=== PATIENT | female | born 1960 | race Caucasian/White ===

== ENCOUNTER 2023-12-24 14:46 | Emergency (ER) | payer BC, SELFPAY ==
[2023-12-24 14:54] VITALS: BP 115/62
--- NOTE | 2023-12-24 18:00 | ED.GENMED ---
History of Present Illness
General
Chief Complaint: Swelling
Source: patient
Exam Limitations: none
Time Seen by Provider: 12/24/23 17:37
Nursing documentation reviewed up to this point in time: agreed with
Travel History
Have you had any contact with someone who has COVID-19?: No
Do you have any symptoms of coronavirus? Fever > 100 degrees, chills, cough, shortness of breath, sore throat, loss of taste or smell, muscle aches, or headache?: No
History of Present Illness
History of Present Illness:
63-year-old female presents stating she feels fatigued, dehydrated, she has a bruise on her right hand and her right arm has been painful, she had chest pressure earlier this morning. 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
her right arm 1 week ago and the arm has been painful since. She is concerned that the bruise on the dorsum of her right hand is a blood clot.
She saw her primary care provider yesterday and was put on Bactrim for a possible sinus infection, she states she has no pressure in her sinuses or congestion.
She denies fever or chills. Denies trouble breathing. Denies abdominal pain, denies N/V/C/D. States her appetite has been fine
Past History
Past History
ED Past Medical History: Hypercholesterolemia
ED Past Surgical History: None
Social History
Tobacco: Smoker
Alcohol: None
Personal: Single
Living: alone
Employment: Employed
Review of Systems
Review of Systems
Allergies reviewed?: Yes
All Other Systems: ROS reviewed and negative except as documented in HPI and ROS
Constitutional: Reports fatigue; Denies fever
EENT: Denies sore throat or runny nose
Respiratory: Denies cough or trouble breathing
Cardiac: Reports chest pain (Chest pressure this morning, none now); Denies palpitations
ABD/GI: Denies abdominal pain, nausea, vomiting, diarrhea, constipated or anorexia
: Denies dysuria, frequency or difficulty voiding
Musculoskeletal: Reports other (Soreness of right arm); Denies neck pain or back pain
Skin: Reports other (Bruise dorsum of right hand)
Neurological: Denies dizzy, headache, weakness or numbness
Phy Exam
Physical Exam
Physical Exam:
GENERAL: No acute distress. A&Ox3.
CONSTITUTIONAL: Afebrile.
EYES: Clear, conjunctivae normal
ENMT: moist mucus membranes, Pharynx nl
RESPIRATORY: Regular respirations, nonlabored, lungs clear.
CARDIOVASCULAR: Regular rate and rhythm, no murmurs, no rubs.
GI: Soft, nontender, normal BS
MUSCULOSKELETAL: Moves with ease. Well perfused.
SKIN: Warm, dry, pink
PSYCH: Normal mood and affect. Well kept, interactive and appropriate
NEUROLOGIC: Awake, alert and oriented. No focal neurological deficits
Scores
Heart Failure Risk
Heart Failure Risk Score: Not Applicable
Course
Orders/Labs/Results
Orders:
Orders
12/24/23 17:57
Electrocardiogram (*1) Urgent
Reason for Study: Chest Pain
EKG- Treatment ONCE
12/24/23 18:12
Complete Blood Count/With Diff Urgent
Comprehensive Metabolic Panel Urgent
Troponin I Urgent
Abnormal Lab Results
12/24/23
18:12
RBC 3.50 L 10^6/uL
(4.20-5.40)
Hct 35.0 L %
(37.0-47.0)
MCV 100.0 H fL
(81.0-99.0)
MCH 34.6 H pg
(27.0-31.0)
BUN 26 H mg/dl
(7-17)
Creatinine 1.2 H mg/dL
(0.6-1.0)
12/24/23 18:12
12/24/23 18:12
Vital Signs
Initial and Last Documented VS:
Initial Vital Signs
Temp Pulse Resp BP Pulse Ox
97.7 F 65 18 115/62 96
12/24/23 14:54 12/24/23 14:54 12/24/23 14:54 12/24/23 14:54 12/24/23 14:54
Last Documented Vital Signs
Temp Pulse Resp BP Pulse Ox
97.7 F 65 18 111/64 96
12/24/23 14:54 12/24/23 14:54 12/24/23 14:54 12/24/23 18:40 12/24/23 14:54
MDM/Problems Addressed
Differential Diagnosis Includes:
Dehydration, viral illness
MDM/Problems Addressed:
63-year-old female presents stating she feels fatigued, dehydrated, she has a bruise on her right hand and her right arm has been painful, she had chest pressure earlier this morning. 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
her right arm 1 week ago and the arm has been painful since. She is concerned that the bruise on the dorsum of her right hand is a blood clot.
She saw her primary care provider yesterday and was put on Bactrim for a possible sinus infection, she states she has no pressure in her sinuses or congestion.
She denies fever or chills. Denies trouble breathing. Denies abdominal pain, denies N/V/C/D. States her appetite has been fine
NAD, afebrile
Patient small bruise on the dorsum of her right hand is consistent with a contusion and does not look fresh. She has full range of motion with no bony tenderness of her right upper extremity, no indication for imaging.
12/24/2023 2004 PM
CBC with no clinically significant abnormality
CMP: BUN/creat 26/1.2
Troponin normal
EKG: Sinus bradycardia with a rate of 59
Explained to patient that she is mildly dehydrated and she needs to have her blood work rechecked next week after she increases her fluid intake to at least eight 8 ounce glasses of fluid daily
*Critical Care Note
Total Time (30-74mins, 75-104mins- exclusive of procedures): Not Applicable
ED Attending Note
-
Portions of this chart may have been created with voice recognition software.� Occasional wrong word or��sound alike� substitutions may have occurred due to the inherent limitations of voice recognition software.
Discharge Plan
Departure
Patient Disposition: Home (Routine Discharge)
Date of Disposition: 12/24/23
Time of Disposition: 20:10
Patient with high blood pressure during this ER visit?: No
Condition: Good
Discharge Problem:
Fatigue, Atypical chest pain, Mild dehydration
Instructions: Chest Pain That Is Not Caused by the Heart (DC), Dehydration, Adult (DC), Fatigue ED
Referrals:
Penny Conway MD [Family Provider] - Call in 1-3 days for appt
Activity Restrictions/Additional Instructions:
As we discussed, there is nothing worrisome in your workup here today.
Your laboratory work shows that you have mild dehydration.
Drink at least eight 8 ounce glasses of fluid daily and have your blood work rechecked in 7 to 10 days by your primary provider
Interventions
Interventions:
*Risk Screen - Suicide Last Done: 12/24/23 14:54
*General Assessment Last Done: 12/24/23 14:54
*Neglect/Abuse Screening Last Done: 12/24/23 14:54
ED- Fall Risk Assessment Last Done: 12/24/23 20:19
*ED COVID-19 Vaccine History Last Done: 12/24/23 14:54
*Nursing Disposition Last Done: 12/24/23 20:19
ED- Cardiac Assessment Last Done: 12/24/23 18:38
ED- Pulmonary Assessment Last Done: 12/24/23 18:38
ED-Skin Assessment Last Done: 12/24/23 18:38
Discharge Date and Time
Discharge Date/Time: 12/24/23 20:20
[2023-12-24 18:24] LABS: % Basophils 0.7 % (0-2); % Eosinophils 2.6 % (0-6); % Immature Granulocytes 0.4 % (0-0.5); % Lymphocytes 36.3 % (20.5-51.1); % Monocytes 7.5 % (1.7-9.3); % Neutrophils 52.5 % (42.2-75.2); Absolute Basophils 0.1 10^3/uL (0-0.2); Absolute Eosinophils 0.2 10^3/uL (0-0.7); Absolute Lymphocytes 2.9 10^3/uL (1.2-3.4); Absolute Monocytes 0.6 10^3/uL (0.1-0.6); Absolute Neutrophils 4.3 10^3/uL (1.4-6.5); Hemoglobin 12.1 g/dL (12.0-16.0); Mean Corp Hgb Conc. 34.6 g/dL (33.0-37.0); Mean Corpuscular Hgb 34.6 pg (27.0-31.0); Mean Platelet Volume 10.3 fL (7.4-10.4); Nucleated Red Blood Cells % 0 %; Platelet Count 262 10^3/uL (130-400); Red Cell Dist. Width 12.9 % (11.5-14.5); White Blood Cell Count 8.1 10^3/uL (4.8-10.8)
[2023-12-24 18:37] LABS: ALT (SGPT) 15 U/L (0-35); AST (SGOT) 24 U/L (14-36); Albumin 4.2 g/dl (3.5-5.0); Alkaline Phosphatase 52 U/L (38-126); Blood Urea Nitrogen 26 mg/dl (7-17); Calcium 9.1 mg/dl (8.4-10.2); Carbon Dioxide 26 mmol/L (22-30); Chloride 105 mmol/L (98-107); Glucose 91 mg/dl (70-99); Potassium 4.3 mmol/L (3.5-5.1); Sodium 136 mmol/L (135-145); Total Bilirubin 0.3 mg/dl (0.2-1.3); Total Protein 6.9 g/dl (6.3-8.2); eGFR 51.18
[2023-12-24 18:39] VITALS: BP 117/58
[2023-12-24 18:40] VITALS: BP 111/64
[2023-12-24 18:47] LABS: Troponin I < 0.012 ng/ml
== END 2023-12-24 20:20 | disposition home or self-care (01) ==
LOC: EMR 14:46
PROVIDERS: Registered Nurse; EMERGENCY PHYSICIAN Emergency Medicine; FAMILY PHYSICIAN Internal Medicine
DX: R53.83 Other fatigue (principal); R07.89 Other chest pain; E86.0 Dehydration; S60.221A Contusion of right hand, initial encounter; S40.021A Contusion of right upper arm, initial encounter; X50.1XXA Overexertion from prolonged static or awkward postures, initial encounter
CPT/HCPCS: 99284; 80053; 84484; 85025; 93005